=== PATIENT | female | born 1945 | race African-American/Black ===

== ENCOUNTER 2025-01-02 21:40 | Emergency (ER) | payer MEDICARE, OTHER ==
[2025-01-02] MEDS ORDERED: Ibuprofen 200 MG TAB ONE (22:03)
== END 2025-01-02 23:48 | disposition home or self-care (01) ==
LOC: CSHERS 21:40
DX: M25.532 Pain in left wrist (principal); I10 Essential (primary) hypertension; Z79.899 Other long term (current) drug therapy; W01.0XXA Fall on same level from slipping, tripping and stumbling without subsequent striking against object, initial encounter
CPT/HCPCS: 99283